=== PATIENT | male | born 1980 | race Two or more races ===

== ENCOUNTER 2016-11-25 03:27 | Emergency (ER) | payer MEDICAID ==
[~2016-11-25] VITALS: Ht 182.9 cm; Wt 77.1 kg
[~2016-11-25 03:27] MED LIST: FURO-144 PO
[2016-11-25] MEDS ORDERED: IV SET PRIMARY 1 EA INFUS.SET MC ONE (03:59)
[2016-11-25] MEDS ORDERED: ONDANSETRON HCL/PF 4 MG/2 ML VIAL ONE (03:59)
[2016-11-25] MEDS ORDERED: HYDROMORPHONE 1 MG/1 ML DISP.SYRIN ONE ×2 (03:59→05:19)
[2016-11-25] MEDS ORDERED: IV NS 0.9% 1,000 ML ONE ×2 (03:59→05:18)
[2016-11-25] MEDS ORDERED: ONDANSETRON HCL/PF 4 MG/2 ML VIAL IVP ONE (04:00)
[2016-11-25] MEDS ORDERED: HYDROMORPHONE INJ 2 MG/ML DISP.SYRIN IV ONE (04:00)
[2016-11-25] MEDS ORDERED: IV NS 0.9% 1,000 ML BAG IV ONE ×2 (04:00→05:30)
[2016-11-25 04:18] LABS: BASOPHILS % (AUTO) 0.4 % (0.0-2.0); DIFF TOTAL % 100 %; EOSINOPHILS # (AUTO) 0.1 /CMM (0.0-0.7); HEMATOCRIT 41 % (39-51); HEMOGLOBIN 13.6 g/dL (13.5-17.5); LYMPHOCYTES # (AUTO) 1.4 /CMM (0.8-4.8); LYMPHOCYTES % (AUTO) 25.3 % (20.0-44.0); MEAN CORPUSCULAR HEMOGLOBIN 30 PG (26.0-33.0); MEAN CORPUSCULAR HGB CONC 33 g/dl (31.0-36.0); MEAN CORPUSCULAR VOLUME 91 fL (80-96); MONOCYTES # (AUTO) 0.9 /CMM (0.1-1.30); MONOCYTES % (AUTO) 15.6 % (2.0-12.0); NEUTROPHILS # (AUTO) 3.2 /CMM (1.8-8.9); NEUTROPHILS % (AUTO) 57.7 % (43.0-81.0); PLATELET COUNT (AUTO) 341 /CMM (150-450); RED BLOOD CELL COUNT(AUTO) 4.54 MIL/uL (4.5-6.0); WHITE BLOOD COUNT (AUTO) 5.5 K/uL (4.3-11.0)
[2016-11-25 04:29] LABS: CALCIUM, SERUM 8.9 mg/dL (8.5-10.1); CREATININE 0.8 mg/dL (0.6-1.3); POTASSIUM 3.5 mmol/L (3.5-5.1)
[2016-11-25 04:33] LABS: INR 0.95 (0.87-1.13); PROTHROMBIN TIME 10.3 SECS (9.5-12.7)
[2016-11-25 04:36] LABS: ALBUMIN 3.9 g/dL (3.4-5.0); BILIRUBIN,DIRECT 0.2 mg/dL (0.0-0.2); BILIRUBIN,TOTAL 0.6 mg/dL (0.2-1.0); INDIRECT BILIRUBIN 0.4 mg/dL (0.0-1.1); TOTAL PROTEIN, SERUM 7.8 g/dL (6.4-8.2)
[2016-11-25] MEDS ORDERED: IOHEXOL-300 100 ML VIAL IV ONE (04:39)
[2016-11-25] MEDS ORDERED: IV NS 0.9% 250 ML IV ONE (04:39)
[2016-11-25 04:41] LABS: BAND % (MANUAL) 2 % (0.0-5.0); LYMPHOCYTES % (MANUAL) 23 % (16-48)
[2016-11-25 04:42] LABS: EOSINOPHILS % (MANUAL) 3 % (0-4); PLATELET ESTIMATE ADEQUATE
[2016-11-25] MEDS ORDERED: HYDROMORPHONE 1 MG/1 ML DISP.SYRIN IV ONE (05:30)
[2016-11-25 06:09] VITALS: BP 131/86
== END 2016-11-25 06:11 | disposition home or self-care (01) ==
LOC: ER 03:31
DX: R10.12 Left upper quadrant pain (principal); F31.9 Bipolar disorder, unspecified; F32.9 Major depressive disorder, single episode, unspecified; F17.200 Nicotine dependence, unspecified, uncomplicated
CPT/HCPCS: 36415; 74160; 80048; 80076; 83690; 85025; 85730; 96360; 96361; 96374; 96375; 96376; 99285; A4606; J1170 ×2; J2405; J7030 ×2; J7050; Q9967; Z7610

== ENCOUNTER 2017-01-29 15:39 | Emergency (ER) | payer MEDICAID, OTHER ==
[~2017-01-29] VITALS: Ht 175.3 cm; Wt 70.3 kg
--- NOTE | 2017-01-29 15:48 | NUR ---
PT BIB [facility] C/O OD. SMELLS OF ETOH AND SUSPECTED DRUG USE D/T CONSTRICTED PUPILS. PT UNRESPONSIVE TO DEEP PAINFUL STIMULUS. PIV PRESENT PRIMARY COUNSELOR. S/P 1MG NARCAN PRIMARY COUNSELOR. RESP EVEN UNLABORED. O2 SAT WNL. SKIN WARM NONDIAPHORETIC. PLACED ON 2L VIA NC FOR SUPPORT. IN ER BED 14 ON MONITOR.
[2017-01-29 16:03] LABS: BASOPHILS % (AUTO) 0.4 % (0.0-2.0); EOSINOPHILS # (AUTO) 0.2 /CMM (0.0-0.7); EOSINOPHILS % (AUTO) 3.5 % (0.0-6.0); HEMATOCRIT 41 % (39-51); HEMOGLOBIN 13.1 g/dL (13.5-17.5); LYMPHOCYTES # (AUTO) 2.4 /CMM (0.8-4.8); MEAN CORPUSCULAR HEMOGLOBIN 29 PG (26.0-33.0); MEAN CORPUSCULAR HGB CONC 32 g/dl (31.0-36.0); MEAN CORPUSCULAR VOLUME 91 fL (80-96); MONOCYTES # (AUTO) 0.6 /CMM (0.1-1.30); MONOCYTES % (AUTO) 10.3 % (2.0-12.0); NEUTROPHILS % (AUTO) 46.8 % (43.0-81.0); PLATELET COUNT (AUTO) 344 /CMM (150-450); RDW COEFFICIENT OF VARIATION 14.8 (11.5-15.0); RED BLOOD CELL COUNT(AUTO) 4.46 MIL/uL (4.5-6.0); WHITE BLOOD COUNT (AUTO) 6.2 K/uL (4.3-11.0)
[2017-01-29 16:11] LABS: CALCIUM, SERUM 8.2 mg/dL (8.5-10.1); CREATININE 0.7 mg/dL (0.6-1.3)
--- NOTE | 2017-01-29 16:12 | NUR ---
URINE SAMPLE OBTAINED VIA IN AND OUT CATH. PT TRANSPORTED TO OR IN STABLE CONDITION.
[2017-01-29 16:18] LABS: ALBUMIN 3.4 g/dL (3.4-5.0); BILIRUBIN,TOTAL 0.3 mg/dL (0.2-1.0); TOTAL PROTEIN, SERUM 7.3 g/dL (6.4-8.2)
[2017-01-29 16:19] LABS: SALICYLATE 1.7 mg/dL (2.8-20.0)
[2017-01-29 16:30] LABS: APPEARANCE,URINE CLEAR (CLEAR); BILIRUBIN,URINE NEGATIVE (NEGATIVE); BLOOD, URINE NEGATIVE Ery/uL (NEGATIVE); COLOR,URINE YELLOW (YELLOW); KETONES,URINE NEGATIVE (NEGATIVE); LEUKOCYTE ESTERASE ,URINE NEGATIVE (NEGATIVE); NITRITE, URINE NEGATIVE (NEGATIVE); PROTEIN,URINE NEGATIVE (NEGATIVE); UGLUCOSE NEGATIVE (NEGATIVE); UROBILINOGEN,URINE 0.2 EU/dL (0.2)
[2017-01-29] MEDS ORDERED: IV NS 0.9% 1,000 ML BAG IV ONE (16:30)
[2017-01-29] MEDS ORDERED: IV NS 0.9% 1,000 ML ONE (16:37)
[2017-01-29] MEDS ORDERED: IV SET PRIMARY 1 EA INFUS.SET MC ONE (16:37)
[2017-01-29 16:42] LABS: PHENCYCLIDINE SCREEN,URINE NEGATIVE (NEGATIVE)
[2017-01-29 16:45] LABS: CANNABINOID, URINE POSITIVE (NEGATIVE)
--- NOTE | 2017-01-29 17:16 | NUR ---
AT BEDSIDE FOR REASSESSMENT
--- NOTE | 2017-01-29 22:29 | NUR ---
PT RESTING COMFORTABLY, ASLEEP BUT EASILY AROUSABLE. NAD NOTED.
--- NOTE | 2017-01-29 23:26 | NUR ---
Patient is resting comfortably in bed with eyes closed. Easily aroused. VSS. IV removed. Catheter intact and site benign. Pressure and 4x4 applied to site. No bleeding noted. REPORT GIVEN TO GRISELDA LLOYD RN FOR EMILY.
--- NOTE | 2017-01-30 06:17 | NUR ---
Patient discharged to home in stable condition. Written and verbal after care instructions given. Patient verbalizes understanding of instruction. Ambulatory with a steady gait. Denies any sx's at this time. Resp even and unalbored.
[2017-01-30 06:18] VITALS: BP 120/77
== END 2017-01-30 06:19 | disposition home or self-care (01) ==
LOC: ER 15:40
DX: S00.81XA Abrasion of other part of head, initial encounter (principal); R51 Headache; F10.129 Alcohol abuse with intoxication, unspecified; F12.10 Cannabis abuse, uncomplicated; F15.10 Other stimulant abuse, uncomplicated; F32.9 Major depressive disorder, single episode, unspecified; F17.200 Nicotine dependence, unspecified, uncomplicated; X58.XXXA Exposure to other specified factors, initial encounter; Y93.89 Activity, other specified; Y92.89 Other specified places as the place of occurrence of the external cause; Y99.8 Other external cause status
CPT/HCPCS: 36415; 70450-TC; 70486-TC; 80048-TC; 80076-TC; 80305; 81000-TC; 85025-TC; A4606; G0480; G6039-TC; J7030; Z7610

== ENCOUNTER 2017-01-30 18:40 | Emergency (ER) | payer OTHER ==
[~2017-01-30] VITALS: Ht 175.3 cm; Wt 70.3 kg
--- NOTE | 2017-01-30 18:40 | NUR ---
BIB [facility] AND [employer]ERS, LACERATION TO FOREHEAD,BUMPED INTO AN EMA MACHINE. NAD NOTED. PT AAO X4, AMB WITH STEADY GAIT. RR EVEN AND UNLABORED. PENDING MD JOE.
--- NOTE | 2017-01-30 19:15 | NUR ---
URINAL PROVIDED TO PT. PER PT WILL GIVE URINE IN URINAL.
[2017-01-30 19:37] LABS: BASOPHILS % (AUTO) 0.8 % (0.0-2.0); EOSINOPHILS # (AUTO) 0.1 /CMM (0.0-0.7); EOSINOPHILS % (AUTO) 1.1 % (0.0-6.0); HEMATOCRIT 42 % (39-51); HEMOGLOBIN 14.2 g/dL (13.5-17.5); LYMPHOCYTES % (AUTO) 53.2 % (20.0-44.0); MEAN CORPUSCULAR HEMOGLOBIN 31 PG (26.0-33.0); MEAN CORPUSCULAR HGB CONC 34 g/dl (31.0-36.0); MEAN CORPUSCULAR VOLUME 91 fL (80-96); MONOCYTES # (AUTO) 0.6 /CMM (0.1-1.30); MONOCYTES % (AUTO) 11.4 % (2.0-12.0); NEUTROPHILS # (AUTO) 1.8 /CMM (1.8-8.9); NEUTROPHILS % (AUTO) 33.5 % (43.0-81.0); PLATELET COUNT (AUTO) 359 /CMM (150-450); RDW COEFFICIENT OF VARIATION 14.9 (11.5-15.0); RED BLOOD CELL COUNT(AUTO) 4.62 MIL/uL (4.5-6.0); WHITE BLOOD COUNT (AUTO) 5.5 K/uL (4.3-11.0)
[2017-01-30 19:45] LABS: CALCIUM, SERUM 7.7 mg/dL (8.5-10.1); CREATININE 0.9 mg/dL (0.6-1.3); POTASSIUM 3.3 mmol/L (3.5-5.1)
--- NOTE | 2017-01-30 19:51 | NUR ---
Sent to CT via [facility].
[2017-01-30 20:02] LABS: ALBUMIN 3.5 g/dL (3.4-5.0); BILIRUBIN,DIRECT 0.1 mg/dL (0.0-0.2); BILIRUBIN,TOTAL 0.2 mg/dL (0.2-1.0); TOTAL PROTEIN, SERUM 7.3 g/dL (6.4-8.2)
--- NOTE | 2017-01-30 20:05 | NUR ---
pt back fr CT.
--- NOTE | 2017-01-30 21:35 | NUR ---
pt continues to be lethargic, easily arousable w/ painful stimuli w/ resp even & unlabored, nad noted. On continuous monitoring.
--- NOTE | 2017-01-30 23:50 | NUR ---
pt low O2 sat 89% on RA, HOB elevated, placed on 2 l/min O2 via NC, on continuous pulse-ox w/ continuous monitoring.
--- NOTE | 2017-01-31 00:52 | NUR ---
Urinal provided. Urine obtained & sent. pt given juice and pudding, sitting up in bed eating w/ no aspirations of food noted. On continuous monitoring.
--- NOTE | 2017-01-31 01:20 | NUR ---
pt asleep in bed w/ resp even & unlabored, nad noted.
[2017-01-31 02:46] LABS: APPEARANCE,URINE CLEAR (CLEAR); BILIRUBIN,URINE NEGATIVE (NEGATIVE); BLOOD, URINE NEGATIVE Ery/uL (NEGATIVE); COLOR,URINE YELLOW (YELLOW); KETONES,URINE NEGATIVE (NEGATIVE); LEUKOCYTE ESTERASE ,URINE NEGATIVE (NEGATIVE); NITRITE, URINE NEGATIVE (NEGATIVE); PH,URINE 6.5 (5.0-8.0); PROTEIN,URINE NEGATIVE (NEGATIVE); UGLUCOSE NEGATIVE (NEGATIVE); UROBILINOGEN,URINE 0.2 EU/dL (0.2)
--- NOTE | 2017-01-31 03:32 | NUR ---
pt continues to sleep w/ nad noted.
[2017-01-31 03:42] LABS: PHENCYCLIDINE SCREEN,URINE NEGATIVE (NEGATIVE)
[2017-01-31 03:45] LABS: CANNABINOID, URINE POSITIVE (NEGATIVE)
[2017-01-31 05:28] VITALS: BP 118/72
--- NOTE | 2017-01-31 05:28 | NUR ---
pt ambulatory w/ steady gait, resp even & unlabored, denies any pain, no sob w/ nad noted. Patient discharged to home in stable condition. Written and verbal after care instructions given. Patient verbalizes understanding of instruction.
== END 2017-01-31 05:29 | disposition home or self-care (01) ==
LOC: ER 18:43
DX: S01.112A Laceration without foreign body of left eyelid and periocular area, initial encounter (principal); F10.129 Alcohol abuse with intoxication, unspecified; F31.9 Bipolar disorder, unspecified; F32.9 Major depressive disorder, single episode, unspecified; F17.200 Nicotine dependence, unspecified, uncomplicated; W01.10XA Fall on same level from slipping, tripping and stumbling with subsequent striking against unspecified object, initial encounter; Y93.89 Activity, other specified; Y92.89 Other specified places as the place of occurrence of the external cause; Y99.8 Other external cause status
CPT/HCPCS: 36415; 70450-TC; 70486-TC; 72125-TC; 80048-TC; 80076-TC; 80305; 81000-TC; 85025-TC; A4606; G0480; G6039-TC; Z7610

== ENCOUNTER 2018-06-22 13:10 | Emergency (ER) | payer OTHER ==
[~2018-06-22] VITALS: Ht 175.3 cm; Wt 69.9 kg
--- NOTE | 2018-06-22 13:14 | NUR ---
PT BIBRA TO ER BED 13. PER REPORT, WAS AT THE BUS STOP SLEEPING W/ STRONG ETOH SMELL. PT IS VERBALLY RESPONSIVE, [place] SPEAKING. BLOOD SUGAR 94 IN THE FIELD. GOWNED AND PLACED ON MONITOR. VSS. AWAITING MD JOE.
--- NOTE | 2018-06-22 13:49 | NUR ---
DR BAUTISTA AT BEDSIDE FOR EVAL.
--- NOTE | 2018-06-22 15:20 | NUR ---
PT SLEEPING, ON MONITOR. VSS. EASILY AROUSABLE. WILL CONTINUE TO MONITOR.
--- NOTE | 2018-06-22 17:44 | NUR ---
PT NOW AWAKE. VERBALLY RESPONSIVE. ASK FOR FOOD. PROVIDED W/ SANDWICH AND JUICE.
[2018-06-22 17:56] VITALS: BP 122/69
--- NOTE | 2018-06-22 17:57 | NUR ---
PATIENT AMBULATING WITH STEADY GAIT. IV removed. Catheter intact and site benign. Pressure and 4x4 applied to site. No bleeding noted. Patient discharged in stable condition. Written and verbal after care instructions given. Patient verbalizes understanding of instruction.
== END 2018-06-22 17:57 | disposition home or self-care (01) ==
LOC: ER 13:14
DX: F10.129 Alcohol abuse with intoxication, unspecified (principal); F31.9 Bipolar disorder, unspecified; F17.200 Nicotine dependence, unspecified, uncomplicated; Y90.9 Presence of alcohol in blood, level not specified; Z60.2 Problems related to living alone; Z96.642 Presence of left artificial hip joint
CPT/HCPCS: 82962; 99283; A4606; Z7610

== ENCOUNTER 2018-06-26 07:14 | Emergency (ER) | payer OTHER ==
[~2018-06-26] VITALS: Ht 180.3 cm; Wt 67.6 kg
[2018-06-26 07:14] VITALS: BP 147/92
[2018-06-26] MEDS ORDERED: DIAZEPAM 5 MG TABLET ONE (07:57)
[2018-06-26] MEDS: DIAZEPAM 5 MG TABLET PO ONE (07:57)
== END 2018-06-26 09:19 | disposition home or self-care (01) ==
LOC: ER 07:16
DX: F41.9 Anxiety disorder, unspecified (principal); F19.10 Other psychoactive substance abuse, uncomplicated; F32.9 Major depressive disorder, single episode, unspecified; F43.10 Post-traumatic stress disorder, unspecified; F17.200 Nicotine dependence, unspecified, uncomplicated; Z98.890 Other specified postprocedural states; Z60.2 Problems related to living alone
CPT/HCPCS: 99284; A4606; Z7610